=== PATIENT | male | born 1990 | race Caucasian/White ===

== ENCOUNTER 2021-10-25 12:00 | Emergency (ER) | payer SELFPAY ==
--- NOTE | 2021-10-25 12:01 | PC.NURSE ---
Patient's mother Kaelyn,
[2021-10-25 12:22] VITALS: BP 105/58; PULSE 117; RESP 18; TEMP 36.6; O2SAT 100
[2021-10-25 13:50] VITALS: BP 127/76; PULSE 96; RESP 19; O2SAT 100
--- NOTE | 2021-10-25 14:42 | PC.NURSE ---
Patient walked out of ED without difficulty and in no distress, patient states that he does not want to wait any more.
== END 2021-10-25 14:42 | disposition left against medical advice (07) ==
LOC: ANHED 14:47
PROVIDERS: PCP Internal Medicine
DX: G43.909 Migraine, unspecified, not intractable, without status migrainosus (principal)
CPT/HCPCS: 99199

== ENCOUNTER 2021-12-03 14:29 | Outpatient (CLI) | payer OTHER, SELFPAY ==
--- NOTE | ~2021-12-03 | XR_ITS ---
EXAMINATION: XR chest 2V 12/03/2021 14:52 INDICATION: Optic neuritis. PROCEDURE: 2 view chest COMPARISON: No prior studies for comparison. FINDINGS: The lungs are clear. The cardiomediastinal silhouette is within normal limits. There are no pleural effusions. There is no pneumothorax suspected. IMPRESSION: 1: NO ACUTE CARDIOPULMONARY DISEASE. Reviewed, dictated and finalized at location A.
== END 2021-12-03 14:30 ==
PROVIDERS: PCP Internal Medicine
DX: H46.9 Unspecified optic neuritis (principal)
CPT/HCPCS: 71046

== ENCOUNTER 2022-01-20 10:55 | Outpatient (CLI) | payer OTHER, SELFPAY ==
--- NOTE | ~2022-01-20 | US_ITS ---
US right upper quadrant INDICATION: Generalized abdominal pain PROCEDURE: Realtime right upper abdominal ultrasound. COMPARISON: No prior studies for comparison. FINDINGS: The pancreas is normal without focal mass or pancreatic ductal dilation. Liver echotexture is normal without focal mass or intrahepatic biliary dilatation. There is normal directional flow i n the portal vein. The gallbladder is normal without stones, gallbladder wall thickening or pericholecystic fluid. Comm on bile duct measures 4 mm. No sonographic Wolf's sign. IMPRESSION: 1: Normal limited abdominal ultrasound. Reviewed, dictated and finalized at location A.
== END 2022-01-20 10:56 ==
LOC: MICIMG 10:56
PROVIDERS: PCP Internal Medicine; Visit Provider Internal Medicine
DX: R10.9 Unspecified abdominal pain (principal)
CPT/HCPCS: 76705

== ENCOUNTER 2024-11-20 08:47 | Outpatient (CLI) | payer OTHER, SELFPAY ==
--- NOTE | ~2024-11-20 | NM_ITS ---
EXAMINATION: NM_HEPATWE_NM DATE: 11/20/2024 13:35 INDICATION: Epigastric pain, bloating, vomiting and diarrhea COMPARISON: None. TECHNIQUE: 4.9 mCi Tc-99m mebrofenin (Choletec) was administered intravenously. Scintigraphic images of the abdomen were obtained for one hour. At the 1 hour time point, the patient drank 8 oz Ensure, and imaging was continued for 60 minutes. Gallbladder ejection fraction was calculated by the technol ogist. FINDINGS: There is normal clearance of radiotracer from the blood pool. There is homogeneous tracer u ptake by the liver. Activity progresses to the bowel and gallbladder. The gallbladder ejection fract ion (GBEF) is 10%. Note that with this technique, normal GBEF >= 33%. IMPRESSION: 1. Abnormally decreased gallbladder ejection fraction which would be consistent with gallbladder dys function or chronic cholecystitis in the appropriate clinical setting. Reviewed, dictated and finalized at location A. IMPRESSION: 1. Abnormally decreased gallbladder ejection fraction which would be consisten t with gallbladder dysfunction or chronic cholecystitis in the appropriate clin ical setting.
--- NOTE | ~2024-11-20 | CT_ITS ---
EXAMINATION: CT abdomen pelvis w con DATE: 11/20/2024 09:19 INDICATION: R10.9 - Unspecified abdominal pain TECHNIQUE: Computed tomography (CT) of the abdomen and pelvis was performed with 100 mL Omnipaque-350 intravenous contrast. Automated exposure control and iterative reconstruction technique were employe d. The dose-length product was 908.73 mGy-cm. COMPARISON: 02/12/2019. FINDINGS: Lower thorax: Unremarkable Liver: Enlarged. Biliary/Gallbladder: Gallbladder is normal. No bile duct dilation. Pancreas: No mass or duct dilation. Spleen: Normal. Adrenals:No mass. Kidneys: No obstructing calcification. No suspicious mass. Horseshoe morphology. Mild bilateral pelvi ectasis, otherwise no hydronephrosis GI tract: Small hiatal hernia. Mild distal esophageal and gastric wall edema. No small or large bowel dilation. Appendix not confidently visualized. Diverticulosis without diverticulitis. Mesentery/Peritoneum: No ascites, mass, or free air. Retroperitoneum: No mass. Pelvis: Pelvic organs are within normal limits. Soft Tissues: Soft tissues and body wall unremarkable. Bones: No acute osseous finding. IMPRESSION: Esophagitis/gastritis. Horseshoe kidney. Mild bilateral pelviectasis, made reflect a degree of mild bilateral UPJ obstructio n. Reviewed, dictated and finalized at location K. IMPRESSION: Esophagitis/gastritis. Horseshoe kidney. Mild bilateral pelviectasis, made reflect a degree of mild bi lateral UPJ obstruction.
--- OUTSIDE RECORDS SUMMARY | 2024-11-20 09:02 | XMS_ITS | Clinical Summary ---
Author Organization [facility] [employer] Address [address] [place] [address] Care Team Providers Care Motion Picture Equipment Supervisor Name Role Phone Gonzales Starks MD Primary Care Provider Unajovany ilable Source Comments [facility] [employer],non-owned Affiliates and Associated Physician Practices is amultiple site organization consisting of ambulatory clinics and hospital sitesin [place], [place], [place] and [place]. This disclosure is being madepursuant to the Care Everywhere program and may not contain all information available regarding this patient. Last updated 18.[facility] Allergies No known active allergies Medications * Be aware that medications may not be up to date on this document. Alwaysverify current medications with the patient. buPROPion XL 24hr (WELLBUTRIN-XL) 300 MG tablet Take 300 mg by mouth every morning Active Methylphenidate HCl (METHYLPHENIDAT E CR) 36 MG tablet Take 36 mg by mouth every morning Active risperiDONE (RISPERDAL) 0.5 MG tablet Take 1 mg by mouth at bedtime Active divalproex DR (DEPAKOTE) 500 MG tablet Take 500 mg by mouth 3 times daily Active Active Problems Problem Noted Date Diagnosed Date Small bowel obstruction 02/13/2019 Hemorrhage of jejunum 02/13/2019 Social History Tobacco Use Types Packs/Day Years Used Date Smoking Tobacco: Never Smokeless Tobacco: Never Alcohol Use Standard Drinks/Week Comments Not Currently 0 (1 standard drink = 0.6 oz pur e alcohol) Sex and Gender Information Value Date Recorded Sex Assigned at Not on file Legal Sex Male 8:57 PM CDT Gender Identity Not on file Sexual Orientation Not on file Last Filed Vital Signs Vital Sign Reading Time Taken Comments Blood Pressure 138/90 02/26/2019 2:08 PM CDT Pulse 91 02/16/2019 12:03 PM CDT Temperature 36.3 C (97.4 F) 02/26/2019 2:08 PM CDT Respiratory Rate 18 02/16/2019 12:03 PM CDT Oxygen Saturation 97% 02/26/2019 2:08 PM CDT Inhaled Oxygen Concentration - - Weight 113.4 kg (250 lb) 02/26/2019 2:08 PM CDT Height 185.4 cm (6' 1) 02/26/2019 2:08 PM CDT Body Mass Index 32.98 02/26/2019 2:08 PM CDT Plan of Treatment Health Maintenance Due Date Last Done Comments HIV SCREENING 10/27/2003 HEPATITIS C SCREENING 10/22/2006 DTAP/TDAP/TD VACCINES (1 - Tdap) 10/27/2007 HEPATITIS B VACCINE (1 of 3 - 19+ 3-dose series) 10/27/2007 HPV VACCINE (1 - 3-dose SCDM series) 10/27/2015 COVID-19 VACCINE (1 - 2023-2 5 season) 2023 DEPRESSION SCREENING 05/01/2024 INFLUENZA VACCINE (#1) 2024 ZOSTER VACCINE (1 of 2) 2038 HIB VACCINE Aged Out No longer eligi ble based on patient's age to complete this topic MENINGOCOCCAL (Group B) VACC INE SHARED DECISION-MAKING Aged Out No longer eligibl e based on patient's age to complete this topic MENINGOCOCCAL GROUPS A/C/Y/W VACCINE Aged Out No longer eligible b ased on patient's age to complete this topic PNEUMOCOCCAL VACCINE Aged Out No long er eligible based on patient's age to complete this topic Insurance [employer] [facility] THIRD DEMOCRAT LIABILITY [facility] Advance Directives * Full Code (Latest Code Status on File) Date Activated Date Inactivated Comments 02/12/2019 10:48 PM 02/16/2019 2:21 PM Care Teams Motion Picture Equipment Supervisor Relationship Specialty Start Date End Date Gonzales Starks MD PCP - General Internal Medicine 02/11/19
--- OUTSIDE RECORDS SUMMARY | 2024-11-20 09:02 | XMS_ITS | Data Portability ---
Author Organization [place] - [facility] [employer], Main Office Address [address] [place] [address] Assessment No assessment recorded. Plan of Treatment Reminders Order Date Submit Date Provider Last Modified By Organization Details Last Modified Time Details Appointments None recorded. Lab None recorded. Referral gastroente rologist referral - acid reflux/estrellita d- Meds have not been helpful. Please call patient to schedule an appointmen t. Thank you. 2024 025 [facility], [address], [facility], [place], [address], 13:45:22 Procedures None recorded. Surgeries None recorded. Imaging None recorded. Medication Orders None recorded. Patient TargetsNo targets recorded. Patient Instructions Encounter Date Encounter Id Patient Instructions Last Modified By Organization Details Last Modified Time 09/20/2024 [id number] Keep log of symptoms and watch diet. Increase exercise and stay hydrated. Referral placed at this time. 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 Please call patient to schedule an appointment. Thank you. Referring Physician: Leyla Tucker, Internal Medicine, Encounter Date: 09/20/2024 Results Created Date Observation Date Name Description Value Unit Range Abnormal Flag Note LastModifiedBy Organization Detail LastModifiedTime 03/03/2003/03/2022 , kadie lawrence No observ ation record ed. [id number] Not Available 06/30/2022 01:09:36 Result Notes None recorded. Problems Name Problem SNOMED Code Status Onset Date Resolution Date Notes Provider Name and Address Organization Details Recorded Time Bipolar disorder 73751060 Active 2021 Not Available [facility] 3 01:08:38 Abdominal pain 73443243 Active 2021 Not Available [facility] 3 01:08:38 Gastroeso phageal reflux disease 296462476 Active 2021 KAMLA Dumont [address], [place], [address] , [facility] [employer] [facility] 5 15:06:06 Depressiv e disorder 53596121 Active 2021 Not Available [facility] 3 01:08:38 Obesity 387294232 Active 2021 Not Available [facility] 3 01:08:38 Acid reflux 393653852 Active 2021 Not Available [facility] 3 01:08:38 Sebaceous cyst of skin 056853942 Completed 202105/23/2023 Azalia silva RMA null, [facility] [employer] [facility] 4 15:36:09 Visual impairmen t 183896052 Completed 202112/22/2021 Not Available [facility] 3 01:08:38 Vertigo 044240995 Completed 202205/23/2023 Azalia silva RMA null, [employer] [facility] 4 15:36:00 Impacted cerumen of bilateral ears 48423307568 19519 Completed 202205/23/2023 Azalia silva RMA null, [employer] [facility] [facility] 4 15:36:05 Stool flecked with blood 732857671 Active 2023 Willis Wise MD [address], [address], [place], [address] , [facility] - [facility] [employer] [facility] 4 09:22:09 Constipat ion 29151509 Active 2023 Willis Wise MD [address], [address], [place], [address] , [place] [facility] 09:22:55 Problem Notes None recorded. Medical Equipment None Reported. Allergies No known drug allergies Medications Name Sig Start Date Stop Date Status Note LastModified by Organization Details LastModified Time amoxicilli n 500 mg capsule Take 1 capsule twice a day by oral route for 7 days. 11/28 completed Not Available Not Available Not Available ondansetro n HCl 4 mg tablet TAKE 1 BY MOUTH TWICE DAILY NEEDED FOR NAUSEA 11/23 completed Not Available Not Available Not Available penicillin V potassium 500 mg tablet TAKE 1 TABLET BY MOUTH TWICE DAILY 11/28 completed Not Available Not Available Not Available peg-electr olyte solution 420 gram oral solution MIX DIRECTED AND DRINK 1/2 AT 5PM ON 07/29 AND 1/2 AT 5AM ON 07/30 completed Not Available Not Available Not Available Adderall XR 20 mg capsule,ex tended release 11/23 completed Not Available Not Available Not Available rizatripta n 10 mg disintegra ting tablet DISSOLVE 1 TABLET UNDER THE TONGUE TWICE DAILY NEEDED FOR HEADACHE 11/28 completed Not Available Not Available Not Available pantoprazo le 40 mg tablet,del ayed release TAKE 1 TABLET BY MOUTH EVERY DAY IN THE MORNING 09/20 completed VO/RM ok to refill Not Available Not Available Not Available Concerta 36 mg tablet,ext ended release 09/20 completed Not Available Not Available Not Available divalproex ER 500 mg tablet,ext ended release 24 hr TAKE 2 TABLETS BY MOUTH DAILY AT BEDTIME 11/28 completed Not Available Not Available Not Available bisacodyl 5 mg tablet,del ayed release TAKE 6 TABLETS BY MOUTH AT 8AM ON 07/29 completed Not Available Not Available Not Available risperidon e 1 mg tablet TAKE 1/2 TABLET BY MOUTH DAILY 11/23 completed Not Available Not Available Not Available escitalopr am 10 mg tablet TAKE 1 TABLET BY MOUTH EVERY DAY 11/28 completed Not Available Not Available Not Available escitalopr am 20 mg tablet TAKE 1 TABLET BY MOUTH ONCE DAILY 11/23 completed Not Available Not Available Not Available bupropion HCl XL 300 mg 24 hr tablet, extended release TAKE 1 TABLET BY MOUTH EVERY DAY IN THE MORNING 11/28 completed Not Available Not Available Not Available aripiprazo le 2 mg tablet TAKE 1/2 TABLET BY MOUTH DAILY 11/28 completed Not Available Not Available Not Available Vyvanse 50 mg capsule TAKE 1 CAPSULE BY MOUTH EVERY DAY IN THE MORNING 11/23 completed Not Available Not Available Not Available Vyvanse 60 mg capsule TAKE 1 CAPSULE BY MOUTH EVERY DAY IN THE MORNING 11/23 completed Not Available Not Available Not Available Vitals Date Recorded Body height Body mass index (BMI) Body weight Body temperature Heart rate Oxygen saturation Oxygen saturation in Arterial blood by Pulse oximetry Systolic And Diastolic Provider Name and Address Organization Details Last Updated DateTime 4 185.42 cm 32.6 kg/m2 590587. 32 g 98.4 [degF] 95 /min 98 % 98 % 118/80 mm[Hg] DEMOND [place] [employer] [facility] [employer] 4 15:30:45 Date Recorded Body height Body mass index (BMI) Body weight Body temperature Oxygen saturation Oxygen saturation in Arterial blood by Pulse oximetry Heart rate Systolic And Diastolic Provider Name and Address Organization Details Last Updated DateTime 5 185.42 cm 31.9 kg/m2 855080. 35 g 97.5 [degF] 99 % 99 % 104 /min 118/68 mm[Hg] Lilly lawrence [employer] [facility] [employer] 5 14:34:15 Date Recorded Body mass index (BMI) Body height Oxygen saturation Oxygen saturation in Arterial blood by Pulse oximetry Heart rate Body weight Systolic And Diastolic Provider Name and Address Organization Details Last Updated DateTime 2 31.3 kg/m2 185.42 cm 99 % 99 % 102 /min 895848. 39 g 110/70 mm[Hg] Not Available [facility] 3 01:08:20 Date Recorded Body weight Body mass index (BMI) Body height Body temperature Heart rate Oxygen saturation Oxygen saturation in Arterial blood by Pulse oximetry Systolic And Diastolic Provider Name and Address Organization Details Last Updated DateTime 3 131884. 32 g 32.6 kg/m2 185.42 cm 97.3 [degF] 102 /min 98 % 98 % 118/80 mm[Hg] Azalia fragoso DEMOND [place] [facility] 3 15:36:19 Date Recorded Body mass index (BMI) Body height Oxygen saturation Oxygen saturation in Arterial blood by Pulse oximetry Heart rate Body weight Systolic And Diastolic Provider Name and Address Organization Details Last Updated DateTime 2 31.1 kg/m2 185.42 cm 98 % 98 % 95 /min 105109. 8 g 108/80 mm[Hg] Not Available [facility] 3 01:08:20 Social History Question Answer Notes LastModified by Organizat ion Details LastModified Time Tobacco Smoking Status Never Smoker Not Available [facility] 06/30/2022 01:07:29 Do You Have An Advance Directive? No [id number] Information not available 06/30/2022 Do You Wear A Helmet When Biking? No [id number] Information not available 06/30/2022 What Is Your Level Of Caffeine Consumption? Heavy [id number] Information not available 06/30/2022 In The 14 Days Before Symptom Onset, Have You Had Close Contact With A Laboratory-confirm ed COVID-19 While That Case Was Ill? No [id number] 026 Information not available 06/30/2022 In The 14 Days Before Symptom Onset, Have You Had Close Contact With A Person Who Is Under Investigation For COVID-19 While That Person Was Ill? No [id number] 026 Information not available 06/30/2022 What Type Of Diet Are You Following? REGULAR MIGRATION.[id number] 026 Information not available 06/30/2022 What Is The Highest Grade Or Level Of School You Have Completed Or The Highest Degree You Have Received? [id number] [id number].[id number] 026 Information not available 06/30/2022 Have There Been Any Changes To Your Family Or Social Situation? No [id number] 026 Information not available 06/30/2022 Are There Any Guns Present In Your Home? No MIGRATION.[id number] 026 Information not available 06/30/2022 Do You Use Insect Repellent Routinely? No [id number].[id number] 026 Information not available 06/30/2022 Do You Have Any Pets? Yes [id number].[id number] 026 Information not available 06/30/2022 What Is Your Relationship Status? Single MIGRATION.[id number] 026 Information not available 06/30/2022 Do You Use Your Seat Belt Or Car Seat Routinely? Yes MIGRATION.[id number] 026 Information not available 06/30/2022 Do You Have Smoke And Carbon Monoxide Detectors In Your Home? Yes MIGRATION.8986005 026 Information not available 06/30/2022 Are You Passively Exposed To Smoke? No MIGRATION.0002961 026 Information not available 06/30/2022 Are There Any Smokers In Your House? No MIGRATION.4877489 026 Information not available 06/30/2022 Do You Use Sunscreen Routinely? No MIGRATION.3052550 026 Information not available 06/30/2022 Has Tobacco Cessation Counseling Been Provided? No MIGRATION.6161425 026 Information not available 06/30/2022 Have You Recently Traveled Abroad? No MIGRATION.2207260 026 Information not available 06/30/2022 Do You Have Any Dietary Restrictions? No MIGRATION.6095654 026 Information not available 06/30/2022 Sex: Unknown Functional Status Question Answer Note LastModified by [employer] Details LastModified Time Do you use any illicit or recreational drugs? No MIGRATION.[id number] 026 Information not available 06/30/2022 Do you or have you ever used any other forms of tobacco or nicotine? No MIGRATION.[id number] 026 Information not available 06/30/2022 What is your level of alcohol consumption? 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 Occasional MIGRATION.[id number] 026 Information not available 06/30/2022 Mental Status Question Answer Note LastModified by [email or web address] Details LastModified Time Do you feel stressed (tense, restless, nervous, or anxious, or unable to sleep at night)? [id number] MIGRATION.[id number] 6 Information not available 06/30/2022 Family History Relationship Description Onset Age of this Age Resolved Age Notes LastModified by Organization Details LastModified Time Unspecified Relation Diabetes mellitus [id number] Not available 06/30/2022 01:07:50 Unspecified Relation Hyperlipidem ia MIGRATION.464 [id number] Not available 06/30/2022 01:07:50 Sister Depressive disorder [id number].503 [id number] Not available 06/30/2022 01:07:50 Brother Anxiety disorder MIGRATION.105 [id number] Not available 06/30/2022 01:07:50 Medical History No medical history recorded. Past Encounters Encounter ID Performer Location Encounter Start Date Encounter Closed Date Diagnosis/Indication Diagnosis SNOMED-CT Code Diagnosis ICD10 Code Diagnosis Note [id number] Willis Wise MD [facility] Internal Med [facility] [address] [facility] [place] [address] 11/23/2021 00:00:00 11/23/2021 09:44:07 [id number] Willis Wise MD [facility] Internal Med [place] [id number] [facility] [place] [address] 12/24/2021 00:00:00 12/24/2021 10:07:05 [id number] Willis Wise MD [facility] Internal Med [facility] [address] [facility] [place] [address] 11/28/2022 15:31:28 11/28/2022 16:08:08 Vertigo 652163959 R42 otc meclizine Impacted c erumen of bilateral ears 7580626499 392537 H61.23 needs cleaning [id number] Willis Wise MD [facility] Internal Med [address] [facility] [place] [address] 05/23/2023 15:19:58 05/23/2023 15:59:56 Stool flecked with blood 868045450 R19.5 need to improve constipati on, diet discussed, call if recurs Constipation 58121526 K5 9.00 diet, water intake, discussed [id number] Willis Wise MD [facility] Internal Med [facility] [address] [place] [address] 09/20/2024 14:23:39 09/20/2024 16:21:34 Gastroesophageal reflux disease 516576917 K21.9 Health Concerns Section Related Observation LastModified by Organization Detai ls LastModified Time None Recorded Concern Status LastModified by Organization Details LastModified Time None Recorded Advance Directives Directive N: Payers Insurance Date Sequence Insurance Name Policy Number Policy Singh Covered Member ID Singh Member ID Guarantor Name 09/20/2024 1 [facility] [id number] Satish Jiang [id number] Satish Jiang 11/14/2024 1 [facility] [id number] Satish Jiang [id number] Satish Jiang 09/20/2024 1 [employer] (POS) [id number] Satish Jiang [id number] Satish Jiang 09/20/2024 2 [facility] Omar Jiang [id number] Satish Jiang Notes Date Note Type Note Provider Name and Address Organization Details Recorded Time 11/28/2022 text/html He is here today for dizziness, Has been going on for a couple month. when he wakes up in the morning hes dizzy for about 45 min when he first wakes up the through out the day its off and on and will hit him out of no where. 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 Was seeing Abebasarichardi but has not seen him in a while Willis Wise MD [address], [address], [place], [address], [facility] [employer] [facility] [employer] 11/28/2022 15:53:00 05/23/2023 text/html He is here today for seeing blood in his stool last . Only seen it once. Denies any abd. pain / bloating. Does get a sudden urge to go but only goes a little. Has been using miralax every day . No noticeable hemorrhoidCONSTIPA TION FORA MONTH, HAS NOT CHANGED DIETBRBPR 6 days ago, no blood since then Willis Wise MD [address], [place], [address], [facility] [employer] 05/24/2023 09:23:25 09/20/2024 text/html Patient is 33y/o male who is here for GI referral at this time. He reports that he has had years of vomiting, burning, and acid reflux symptoms. He reports that hes taken OTC medications as well as omeprazole in the past without relief. He is requesting to see new GI specialist. Patient currently denies chest pain, fever, vomiting, or diarrhea, or pain at this time. Leyla Tucker, BRIAN-C [address] [facility] [address], [place], [address], [facility] 09/20/2024 15:13:32
== END 2024-11-20 08:48 | disposition home or self-care (01) ==
PROVIDERS: PCP Internal Medicine; Visit Provider Nurse Practitioner Family
DX: R14.0 Abdominal distension (gaseous) (principal); R11.10 Vomiting, unspecified; R19.7 Diarrhea, unspecified
CPT/HCPCS: 74177; 78226; A9537; Q9967

== ENCOUNTER 2025-01-08 15:58 | Outpatient (CLI) | payer OTHER, SELFPAY ==
--- OUTSIDE RECORDS SUMMARY | 2025-01-08 16:05 | XMS_ITS | Clinical Summary ---
Author Organization [facility] [employer] Address [address] [place] [address] Care Team Providers Care Nitro Man Name Role Phone Gonzales Starks MD Primary Care Provider Unajovany ilable Source Comments [facility] [employer],non-owned Affiliates and Associated Physician Practices is amultiple site organization consisting of ambulatory clinics and hospital sitesin [place], [place], [place] and [place]. This disclosure is being madepursuant to the Care Everywhere program and may not contain all information available regarding this patient. Last updated 18.[facility] [employer] Allergies No known active allergies Medications * [...] age to complete this topic Insurance [employer] [facility] TP THIRD DEMOCR[employer] [facility] Advance Directives * Full Code (Latest Code Status on File) Date Activated Date Inactivated Comments 02/12/2019 10:48 PM 02/16/2019 2:21 PM Care Teams Nitro Man Relationship Specialty Start Date End Date Gonzales Starks MD PCP - General Internal Medicine 02/11/19
[2025-01-08 16:52] LABS: Alanine Aminotransferase 34 U/L (6-50); Albumin Level 4.4 g/dL (3.5-5.1); Alkaline Phosphatase 90 U/L (38-126); Amylase 80 U/L (30-110); Aspartate Amino Transferase 33 U/L (17-59); Bilirubin,Total 0.8 mg/dL (0.2-1.3); Lipase 95 U/L (23-300); Total Protein 7.8 g/dL (6.3-8.2)
== END 2025-01-08 15:59 | disposition home or self-care (01) ==
LOC: ANHLAB 15:59
PROVIDERS: PCP Internal Medicine; Visit Provider Surgery
DX: K81.1 Chronic cholecystitis (principal); Z01.818 Encounter for other preprocedural examination
CPT/HCPCS: 36415; 80076; 82150; 83690; 86850; 86900; 86901

== ENCOUNTER 2025-01-13 03:16 | Day surgery (SDC) | payer OTHER, SELFPAY ==
[2025-01-08 14:22] VITALS: BMI 33.0
--- NOTE | 2025-01-08 14:29 | PC.NURSE ---
Report to the Outpatient Waiting Room, entrance under the green pavilion located off [facility], at time _1030_ on date _[id number]_. Planned Procedure Time: _1230_.? Time changes happen often and if your time is changed the preop area will call you the afternoon before. - You and your visitor will be asked to self-screen and do not enter if you have any COVID symptoms. Please call surgeon if you need to reschedule. - A mask is optional within the hospital at this time. Patients may have clear liquids (water, carbonated beverages, clear teas, apple juice) until 3 hours prior to surgery with a maximum of 20 ounces. - No food from midnight until time of surgery and no smoking, or chewing tobacco (or any form of nicotine). No chewing gum, candy or mints. Take only the following medications with a SIP of water on the morning of surgery: __None___ DO NOT STOP ANY OF YOUR OTHER PRESCRIPTION MEDICATIONS PRIOR TO SURGERY EXCEPT THE FOLLOWING Hold all vitamins and supplements for 3 days per anesthesiologist. Medications to discontinue per physician Date to take last dose Please no make-up, nail mauritanian, hairspray, perfume, deodorant, or body powder the day of surgery.? No jewelry (including any body piercings) or valuables the day of surgery, leave them at home.? Please take a shower or bath the night before, or the morning of, surgery with an antibacterial soap.? Wear comfortable, loose fitting clothing.? - Jewelry must be removed prior to entering the operating room.? Rings and piercings that are not removed may be cut off. - The hospital will not accept responsibility for valuables.? - Please leave all valuables, including medications, at home the day of surgery. If you are going home after surgery, a licensed drive away driver must drive you home.? - NO public transportation without another adult if you receive anesthesia. - We recommend that an adult stay with you for 24 hours following discharge. - We also recommend that you do not drive, make important decision, drink alcoholic beverages, or take any drugs that were not prescribed by your health care provider for at least 24 hours after your discharge time. Follow any additional instructions given to you from your surgeon. Telephone instructions given to __Matt___and asked if any additional questions and then verbalized understanding. Patient advised to call surgeon office or pre surgery nurse liaison [phone] if any additional questions.
[2025-01-13] VITALS (9 sets, daily range): BP systolic 120–154; BP diastolic 70–100; PULSE 70–91; RESP 15–22; TEMP 36.3–36.6; O2SAT 93–100
--- OUTSIDE RECORDS SUMMARY | 2025-01-13 03:18 | XMS_ITS | Clinical Summary ---
Author Organization [facility] [employer] Address [address] [place] [address] Care Team Providers Care Package Dyer Name Role Phone Gonzales Starks MD Primary Care Provider Unajovany ilable Source Comments [facility] [employer],non-owned Affiliates and Associated Physician Practices is amultiple site organization consisting of ambulatory clinics and hospital sitesin [place], [place], [place] and [place]. This disclosure is being madepursuant to the Care Everywhere program and may not contain all information available regarding this patient. Last updated 18.[facility] [employer] Allergies No known active allergies Medications * [...] VACCINE (1 - 3-dose SCDM series) 10/27/2015 DEPRESSION SCREENING 05/01/2024 COVID-19 VACCINE (1 - 2023-2 5 season) 2024 INFLUENZA VACCINE (#1) 2024 ZOSTER VACCINE (1 [...] age to complete this topic Insurance [employer] [facility] TP THIRD DEMOCRAT LIABILITY [facility] Advance Directives * Full Code (Latest Code Status on File) Date Activated Date Inactivated Comments 02/12/2019 10:48 PM 02/16/2019 2:21 PM Care Teams Package Dyer Relationship Specialty Start Date End Date Gonzales Starks MD PCP - General Internal Medicine 02/11/19
--- NOTE | 2025-01-13 08:57 | WPDHPUPDATE1 ---
History and Physical Update Update Date/Time: 01/13/25 08:57 History and Physical has been reviewed, including an updated exam of the patient. There are NO changes in the patient's condition. Risks, benefits, and alternatives have been discussed and questions answered. Patient agrees to proceed with procedure.
[2025-01-13] MEDS: ACETAMINOPHEN 500 MG TABLET 1000 MG PO (11:43)
[2025-01-13] MEDS: LACTATED RINGERS 1,000 ML 30 ML IV CONT ×2 (11:48→15:15)
[2025-01-13] MEDS: KETOROLAC 15 MG/ML VIAL (*BKC) IV PUSH (11:50)
[2025-01-13] MEDS: INDOCYANINE GREEN 25 MG VIAL WITH DILUENT 3.75 MG IV PUSH (11:52)
--- NOTE | 2025-01-13 13:35 | WPDANESEPPF ---
Anes - Initial Pre Proc Eval Procedure: Operation Date: 01/13/25 12:30 Proposed Procedures p Robotic Laparoscopic Cholecystectomy - Neha Schreiber MD Date/Time: 01/13/25 13:35 Surgeon: Neha Schreiber MD Pre Op Diagnosis: Chr Cholecystitits Patient Data Age: 34 Gender: M Height: 1.85 m Weight: 110.4 kg Last Vital Signs Temp 97.3 F L 01/13/25 11:05 Pulse 74 01/13/25 11:05 Resp 16 01/13/25 11:05 BP 138/84 01/13/25 11:05 Pulse Ox 100 01/13/25 11:05 O2 Del Method Room Air 01/13/25 11:05 Allergies Allergy/AdvReac Type Severity Reaction Status Date / Time No Known Allergies Allergy Verified 01/13/25 12:03 Home Medications ?Medication ?Instructions ?Recorded ?Confirmed ?Type ondansetron 4 mg disintegrating 4 mg PO Q8H PRN nausea and 11/08/24 01/08/25 Rx tablet vomiting #10 tabs Patient hx anesthesia problems: none Family hx anesthesia problems: none Results Review: All pre-operative results and documents have been reviewed as part of the pre-operative evaluation. [facility] Past Medical History Medical History Biliary dyskinesia RLQ abdominal pain Early satiety Diarrhea Vomiting Bloating Abdominal pain Social History Social History Smoking status: Never smoker Tobacco type: e-cigarettes/vaping Additional smoking assessment comments: Quit 3 years ago. Do You Feel Safe in your Home?: Yes Lack of Transportation: No Lack of Food: Never True Current Housing: I Have Housing Concerned About Future Housing: No Difficulty Paying Gas/Electric Bills: No Difficulty Paying for Meds: YES Currently Unemployed: No Education: High School Diploma/GED Difficulty w/ Childcare or Family Care: No Living arrangements: with family Spiritual care concerns: No Anes - Eval Final PreProcedure Day of Procedure 01/13/25 13:35 Patient weight: obese Lungs: normal air movement Airway: Mallampati scale class III Neurological: alert and oriented Last oral intake: >/= 8 hours ASA classification: II Emergent: no Anesthetic plan: proceed Anesthesia type and monitoring: general ETT and standard monitoring Results Review: All pre-operative results and documents have been reviewed as part of the pre-operative evaluation. BMI 32, overall active w walking 1-2 fos, physically job, no cp or sob. Informed Consent: The patient's anesthetic plan and its attendant risks and benefits were discussed with the patient/family/POA. Questions were solicited and answers provided to the satisfaction of the patient/family/POA.
[2025-01-13] MEDS: ceFAZolin 2 GM in SODIUM CHLORIDE 0.9% IV 50 ML 100 ML IVPB (14:05)
[2025-01-13] MEDS: BUPIVACAINE/EPINEPHRINE 0.5% 50 ML VIAL 30 ML INFILTRATE (14:41)
--- NOTE | 2025-01-13 14:48 | S_PTH ---
PATIENT: Satish Jiang LOC: [facility] U#:[id number] AGE/SX: 34/M ROOM: RE01/13/[address]: Neha Schreiber MD : 1990 BED: DIS: 01/13/2025 SPEC #: [id number] RECD: 01/14/25 08:34 STATUS: ALLISON REJ Carlos #: [id number] KELVIN: 01/13/25 14:[address]: Neha Schreiber DEPT: [facility] Surgical RECD BY: Blaire Elder MLT, ([facility]) ENTERED: 01/14/25 08:34 SP TYPE: Surgical OTHR DR: Willis WiseMD Tissues: A - Gallbladder Procedures: Hematoxylin and Eosin Stain Gross and Microscopic Level 3
--- NOTE | 2025-01-13 15:07 | P.OP_ITS ---
Procedure Note - Detailed Date of Procedure 01/13/25 Pre-op Diagnosis chronic cholecystitis, cholelithiasis Post-op Diagnosis Same Procedure Performed Robotic assisted cholecystectomy Surgeon Neha Schreiber MD Anesthesia General Indications 34-year-old male presenting with right upper quadrant pain. Workup, including imaging, significant for chronic cholecystitis, cholelithiasis. Findings moderate cholecystitis Description of Procedure The patient was taken to the operating room and placed in the supine position. After adequate induction of general anesthesia, the patient was prepped and draped in the normal sterile fashion. A time-out was then done to verify the patient's identity, as well as the procedure being performed. I began by making a 8 mm incision in the periumbilical region. A Veress needle was then placed in the peritoneal cavity and CO2 gas was insufflated. After adequate pneumoperitoneum was achieved, the Veress needle was removed and a 8 mm Optiview trocar was placed under direct visualization. Once into the abdominal cavity, the introducer was removed and the laparoscope was placed through this trocar site. Under direct visualization, I placed a further 8 mm port in the left mid abdomen and 2 additional 8 mm ports in the right mid abdomen. The robot was then docked to these ports sites. I then went to the console. The gallbladder was then identified and noted to be moderately inflamed and distended. I was able to place a grasper at the dome of the gallbladder and this was retracted up and over the liver. A 2nd retractor was used to grasp the infundibulum and retracted laterally. This allowed visualization and dissection of the triangle of Calot. There were some omental adhesions to the gallbladder and these were taken down with the cautery. I then began dissection around the triangle Calot. I first identified the cystic duct, I was able to visualize the entirety of the duct from its proximal insertion into the gallbladder to its distal junction with the common hepatic/common bile duct junction. I then used the firefly visualization at this point to confirm the anatomy. The proximal cystic duct was then further skeletonized, clipped, and transected. Next I visualized the cystic artery. Again the structure was skeletonized, clipped, and transected. I then again used firefly to confirm anatomy and no aberrant anatomy was noted. I then used the Bovie cautery to take down the peritoneal attachments of the gallbladder off the liver bed. Once the gallbladder specimen was completely detached, an Endo pouch was placed through the left 8 mm port site and the gallbladder specimen was placed in the endo-pouch and subsequently removed. Of note, I made a cholecystostomy and decompressed the gallbladder to facilitate removal. I then re-examined the right upper quadrant. Hemostasis was noted in the liver bed and the clips were noted to be in good position on both the duct and the artery. No other pathology was seen in the right upper quadrant. All instruments were then removed and the robot was undocked. The abdomen was then desufflated and all ports were removed. All port sites were then closed with 4- 0 Monocryl subcuticular suture. Dermabond was placed on each was wound. The patient tolerated the procedure well and was extubated in the operating room postop. The patient will now be transferred to the recovery room in stable condition. Estimated Blood Loss 5 Drains No Packing No Pathology Yes Complications No immediate complications Condition Stable Disposition PACU [facility] Billing Surgery - Charge Forward: Surgery Billing
[2025-01-13] MEDS: fentaNYL CITRATE INJ (*CRX) 100 MCG/2 ML VIAL 25 MCG IV PUSH ×6 (15:41→16:04)
[2025-01-13] MEDS: ONDANSETRON INJ 4 MG/2 ML VIAL IV PUSH (16:31)
== END 2025-01-13 17:21 | disposition home or self-care (01) ==
PROVIDERS: PCP Internal Medicine; Visit Provider Surgery
PROC: 0FT44ZZ Resection of Gallbladder, Percutaneous Endoscopic Approach (ICD-10-PCS; CPT 47562; principal; 2025-01-13 12:30)
DX: K81.1 Chronic cholecystitis (principal); K66.0 Peritoneal adhesions (postprocedural) (postinfection); K82.8 Other specified diseases of gallbladder; E66.9 Obesity, unspecified; Z68.32 Body mass index [BMI] 32.0-32.9, adult; Z87.891 Personal history of nicotine dependence
CPT/HCPCS: 47562; 88304; J0690; A9270; J1100; J1171; J1885; J2250; J2405; J2704; J3010; J7120